=== PATIENT | female | born 1960 | race African-American/Black ===

== ENCOUNTER → 2016-12-06 | Outpatient (REF) ==
[2016-12-06 15:52] LABS: C-REACTIVE PROTEIN 0.9 mg/dL (0.0-0.9)
[2016-12-06 16:22] LABS: THYROID STIMULATING HORMONE 1.61 uIU/mL (0.465-4.680)
== END ==
LOC: ZLAB.WCH 15:03
PROVIDERS: Internal Medicine
DX: Z01.89 Encounter for other specified special examinations (principal)

== ENCOUNTER → 2017-03-22 | Outpatient (CLI) | payer BC | LOC: MC.RAD 07:30 | DX: N64.4 Mastodynia (principal) ==

== ENCOUNTER → 2017-08-12 | Outpatient (CLI) | payer BC | LOC: MC.RAD 08:29 | DX: Z12.31 Encounter for screening mammogram for malignant neoplasm of breast (principal) ==

== ENCOUNTER → 2017-12-09 | Outpatient (REF) ==
[2017-12-09 17:16] LABS: THYROID STIMULATING HORMONE 1.6 uIU/mL (0.465-4.680)
== END ==
LOC: ZLAB.WCH 16:06
PROVIDERS: Internal Medicine
DX: Z01.89 Encounter for other specified special examinations (principal)

== ENCOUNTER → 2018-12-11 | Outpatient (REF) ==
[2018-12-11 16:41] LABS: C-REACTIVE PROTEIN 1.8 mg/dL (0.0-0.9)
[2018-12-11 17:10] LABS: THYROID STIMULATING HORMONE 1.62 uIU/mL (0.465-4.680)
== END ==
LOC: ZLAB.WCH 16:16
PROVIDERS: Internal Medicine
DX: Z01.89 Encounter for other specified special examinations (principal)

== ENCOUNTER → 2022-01-23 | Outpatient (REF) | LOC: ZLAB.WCH 14:34 | DX: Z01.89 Encounter for other specified special examinations (principal) ==

== ENCOUNTER 2022-02-19 08:18 | Day surgery (SDC) | payer BC ==
[~2022-02-19] VITALS: Ht 160 cm; Wt 79.1 kg
--- NOTE | 2022-02-19 08:35 | NUR ---
61 Year old natural female admitted to [facility] via ambulation, steady gait and no assistive devices. Height and weight obtained. Visitor is present. Procedure verified and consent signed. Medications, HX and allergies reviewed with the PT. First and last name + verified with the PT. PT used the bathroom before changing into a clean gown, non-slip socks are on. IV started in R hand on first attempt with 20G. IVF scanned and are infusing without difficulty. CBC drawn and sent to lab via tech prior to fluid administration. PT oriented to room and call lance, within reach. PT states having a prior hyster. Warm blankets provided. Side rails x1. Lights dimmed per PT request to maintain comfort.
[2022-02-19] MEDS ORDERED: VITAMIN D 50,1.25 MG PO (08:39)
[2022-02-19] MEDS ORDERED: K-DUR20 MEQ PO (08:40)
[2022-02-19] MEDS ORDERED: PLAQUENIL 200M200 MG PO (08:40)
[2022-02-19] MEDS ORDERED: HCTZ12.5TAB PO (08:41)
[2022-02-19] MEDS ORDERED: ALIVE (08:42)
[2022-02-19 08:50] VITALS: BP 112/71; PULSE 64; TEMP 97.5
[2022-02-19 08:59] VITALS: BP 132/67; PULSE 84; TEMP 98.1
[2022-02-19 09:35] LABS: BASO % 0.7 % (0.0-2.0); EOS # 0.1 K/mm3 (0.0-0.7); GRAN # 1.1 K/mm3 (1.4-6.5); GRAN % 35.8 % (42.2-75.2); HEMATOCRIT 45.9 % (37.0-47.0); HEMOGLOBIN 14.8 g/dl (12.5-16.0); LYMPH # 1.6 K/mm3 (1.2-3.4); LYMPH % 52.7 % (20.0-51.0); MEAN CELL VOLUME 98 fl (80.0-100.0); MEAN CORPUSCULAR HEMOGLOBIN 32 pg (27-31); MEAN CORPUSCULAR HGB CONC 32 g/dl (33.0-37.0); MEAN PLATELET VOLUME 9.1 fl (7.4-10.4); MONO # 0.3 K/mm3 (0.1-0.6); MONO % 8.8 % (1.7-9.3); PLATELET COUNT 192 K/mm3 (130-400); RED BLOOD COUNT 4.69 M/mm3 (4.10-5.30); REDCELL DISTRIBUTION WIDTH-CV 12.5 % (11.5-14.5)
--- NOTE | 2022-02-19 09:57 | NUR ---
Initial visit; Patient and her thanked Apparel Sales Leader for offering prayer prior to testing procedure. Apparel Sales Leader prays for all-clear results.
[2022-02-19 11:15] VITALS: BP 105/74; PULSE 77; TEMP 97.3
--- NOTE | 2022-02-19 11:15 | NUR ---
PT arrived from procedure, drowsy but oriented x3. Visitor is present in room. Verbal room report obtained from Swathi BOUDREUAX. PT denies nausea. NO Vomiting. Monitors applied and VSS. PT provided a warm muffin, hot coffee, and ice water per request. PT oriented to room and call lance, within reach. PT denies pain. Will monitor per intervals.
[2022-02-19 11:30] VITALS: BP 110/59; PULSE 76
--- NOTE | 2022-02-19 11:30 | NUR ---
VSS. PT expressed desire to be dishcarged. Biopsy site is dry, clean and intact; no bleeding or drainage on bandage. PT states mild discomfort, but states it is tolerable. PT has finished her muffin and continues to drink coffee. NO nausea.
[2022-02-19 11:45] VITALS: BP 127/51; PULSE 81
--- NOTE | 2022-02-19 11:45 | NUR ---
VSS. IV discontinued. Catheter tip intact. Pressure bandage applied. NO redness or swelling noted. DC instructions and educational material reviewed with the PT and , both verbalized understanding. The PT signed the related paperwork after questions answered to PT satisfaction. PT denied needing assistance changing and states her will assist. Call lance remains within reach if needed.
[2022-02-19 11:49] VITALS: BP 105/74; PULSE 82
--- NOTE | 2022-02-19 12:00 | NUR ---
PT dismissed from [facility] via wheelchair to the PT entrence by Yang BOUDREAUX and transferred into the care of her , who is present to drive private care. PT has DC packet in hand and personal belongings.
== END 2022-02-19 12:00 | disposition home or self-care (01) ==
LOC: SDCO 08:18
PROVIDERS: Pathology Anatomic Pathology & Clinical Pathology
DX: D72.819 Decreased white blood cell count, unspecified (principal); I10 Essential (primary) hypertension; F17.210 Nicotine dependence, cigarettes, uncomplicated
CPT/HCPCS: J7120